=== PATIENT | male | born 1990 | race Hispanic/Latino ===

== ENCOUNTER 2017-02-26 16:06 | Emergency (ER) | payer OTHER ==
[~2017-02-26] VITALS: Ht 175.3 cm; Wt 150.0 kg
[~2017-02-26 16:06] MED LIST: ADVAIR DISK2 IN; ALBUTEROL SUL0.083 %; AVELOX400 MG PO; CLARITIN10 M1 OR; IPRATROPIUM BROMIDE/ IN; LORTAB5 OR; PROVENTIL HFA IN; SINGULAIR OR
[2017-02-26 17:42] LABS: HEMATOCRIT 47.6 % (39.0-50.0); IMMATURE GRANULOCYTES 0.5 % (0.0-1.0); MEAN CELL VOLUME 83.7 fL CALC (80.0-100.0); MEAN CORPUSCULAR HGB 28.1 pG CALC (26.0-32.0); MEAN CORPUSCULAR HGB CONC 33.6 g/L CALC (32.0-36.0); NEUT# 11.39 thou/uL (1.82-7.42); RED BLOOD COUNT 5.69 mill/uL (4.70-6.10); RED CELL DISTRI WIDTH 13.1 % (11.5-15.5)
[2017-02-26 18:09] LABS: ALBUMIN 4.2 g/dL (3.2-5.0); ALKALINE PHOSPHATASE 78 u/l (38-126); ANION GAP 18 (6-22 (CALC)); BILIRUBIN, TOTAL 1.5 mg/dL (0.0-1.4); BUN 12 mg/dL (9-20); BUN/CREATININE RATIO 17 (12-20 (CALC)); CALCIUM 9.4 mg/dL (8.4-10.2); CARBON DIOXIDE 25 mmol/l (22-30); CHLORIDE 101 mmol/l (95-108); CREATININE 0.7 mg/dL (0.7-1.3); GFR > 60 ML/MIN (>=60 (CALC)); GFR FOR AFR.AMER. > 60 ML/MIN (>=60 (CALC)); GLUCOSE 113 mg/dL (75-110); POTASSIUM 4.1 mmol/l (3.5-5.1); SGOT/AST 59 u/l (17-59); SGPT/ALT 35 u/l (21-72); SODIUM 140 mmol/l (137-146)
[2017-02-26] MEDS ORDERED: ZOFRAN4 MG/TAB PO (18:18)
[2017-02-26] MEDS ORDERED: BENTYL20 MG PO (18:18)
[2017-02-26 18:21] VITALS: BP 141/67
== END 2017-02-26 18:25 | disposition home or self-care (01) | DRG 392 ==
LOC: ED 16:06
PROVIDERS: Emergency Medicine
DX: K52.9 Noninfective gastroenteritis and colitis, unspecified (principal); R11.2 Nausea with vomiting, unspecified; R10.11 Right upper quadrant pain; R10.12 Left upper quadrant pain

== ENCOUNTER 2019-11-12 04:16 | Emergency (ER) | payer OTHER ==
[~2019-11-12] VITALS: Ht 175.3 cm; Wt 172.4 kg
[~2019-11-12 04:16] MED LIST changes: +BENTYL20 MG PO; +ZOFRAN4 MG/TAB PO
[2019-11-12] MEDS ORDERED: ULTRAM50 M1 PO (06:00)
[2019-11-12] MEDS ORDERED: FLEXERIL PO (06:00)
[2019-11-12 06:45] VITALS: BP 121/62
== END 2019-11-12 06:55 | disposition home or self-care (01) | DRG 552 ==
LOC: ED 04:16
DX: M47.816 Spondylosis without myelopathy or radiculopathy, lumbar region (principal); M54.41 Lumbago with sciatica, right side